=== PATIENT | female | born 1965 | race Caucasian/White ===

== ENCOUNTER 2020-07-08 12:41 | Emergency (ER) | payer OTHER ==
[2020-07-08 13:30] VITALS: BP 145/78; PULSE 55; TEMP 97.9; BMI 32.3
== END 2020-07-08 15:10 | disposition home or self-care (01) ==
LOC: JER 12:41
DX: Z11.59 Encounter for screening for other viral diseases (principal)
CPT/HCPCS: 99283-25

== ENCOUNTER 2022-02-16 04:42 | Observation (INO) | payer OTHER ==
[2022-02-16 04:58] VITALS: TEMP 98.1; BMI 30.9
[2022-02-16] MEDS ORDERED: ACETAMINOPHEN 1000 MG/100 ML BAG IVPB ONE (05:33)
[2022-02-16] MEDS ORDERED: ACETAMINOPHEN INJECTION 100 ML IVPB ONE (05:40)
[2022-02-16 06:14] LABS: BASO % 0.7 % (0-2.0); EOS % 1.9 % (0-4.5); HEMATOCRIT 32.6 % (32.4-45.2); HEMOGLOBIN 10.6 GM/dL (10.7-15.3); LYMPH % 40.3 % (8-40); MCH 28.5 pg (25.7-33.7); MCHC 32.6 g/dl (32.0-36.0); MEAN CELL VOLUME 87.3 fl (80-96); MEAN PLT VOLUME 8.9 fl (7.5-11.1); MONO % 5.7 % (3.8-10.2); NEUT % 51.4 % (42.8-82.8); PLATELET COUNT 229 10^3/uL (134-434); RBC 3.73 M/mm3 (3.60-5.2); RDW 14.6 % (11.6-15.6); WHITE BLOOD COUNT 5.1 K/mm3 (4.0-10.0)
[2022-02-16 06:35] LABS: CALCIUM 8.3 mg/dL (8.5-10.1)
[2022-02-16 06:36] LABS: ALBUMIN 3.1 g/dl (3.4-5.0); BLOOD UREA NITROGEN 12.8 mg/dL (7-18); MAGNESIUM 2.1 mg/dL (1.8-2.4)
[2022-02-16 06:39] LABS: CREATININE 0.6 mg/dL (0.55-1.3); PHOSPHOROUS 3.2 mg/dL (2.5-4.9)
[2022-02-16 06:40] LABS: BILIRUBIN,TOTAL 0.3 mg/dL (0.2-1); TOT PROT 6.4 g/dl (6.4-8.2)
[2022-02-16] MEDS ORDERED: MAG HYDROX/AL HYDROX/SIMETH 30 ML UNIT-DOSE CUP PO ONE (07:57)
[2022-02-16] MEDS ORDERED: MAG HYDROX/AL HYDROX/SIMETH 30 ML UNIT-DOSE CUP PO PRN (07:57)
[2022-02-16] MEDS ORDERED: FAMOTIDINE 20 MG TABLET PO ONE (07:58)
[2022-02-16] MEDS ORDERED: BACLOFEN 10 MG TABLET (FP) PO PRN (08:00)
[2022-02-16] MEDS ORDERED: FAMOTIDINE 20 MG TABLET ONE (08:03)
[2022-02-16] MEDS ORDERED: MAG HYDROX/AL HYDROX/SIMETH 30 ML UNIT-DOSE CUP ONE (08:04)
[2022-02-16] MEDS ORDERED: OMEGA-3 ACID ETHYL ESTERS (FATTY-ACIDS) 1 GM CAPSULE (FP) PO SCH (10:00)
[2022-02-16] MEDS ORDERED: CYANOCOBALAMIN 1,000 MCG TABLET (FP) PO SCH (10:00)
[2022-02-16] MEDS ORDERED: PARoxetine HCL 10 MG TABLET PO SCH (10:00)
[2022-02-16] MEDS ORDERED: PARoxetine HCL 10 MG TABLET ONE (10:33)
[2022-02-16 11:28] VITALS: BP 138/67; PULSE 48
[2022-02-17] MEDS ORDERED: ENOXAPARIN NA (PORCINE) 40 MG/0.4 ML DISP.SYRIN SQ SCH (10:00)
== END 2022-02-16 12:05 | disposition home or self-care (01) ==
LOC: JER 04:42 → JERBED 06:54
PROVIDERS: ADMIT Internal Medicine; ATTEND Internal Medicine
PROC: 3E033NZ Introduction of Analgesics, Hypnotics, Sedatives into Peripheral Vein, Percutaneous Approach (ICD-10-PCS; principal; 2022-02-16)
DX: R77.8 Other specified abnormalities of plasma proteins (principal); R00.1 Bradycardia, unspecified; R07.9 Chest pain, unspecified; K29.70 Gastritis, unspecified, without bleeding; Z98.84 Bariatric surgery status; Z82.41 Family history of sudden cardiac death; R25.2 Cramp and spasm
CPT/HCPCS: 0241U-QW; 36415; 71045-TC-FY; 80053; 80061; 83036; 83735; 84100; 84443; 84484; 85025; 93005; 93010; 96374; 99285-25; G0378